=== PATIENT | male | born 1970 | race Caucasian/White ===

== ENCOUNTER 2022-10-22 22:19 | Inpatient (IN) | payer MEDICAID, SELFPAY ==
[2022-10-22 22:26] VITALS: BP 123/71; PULSE 78; RESP 18; TEMP 36.6; O2SAT 95; BMI 31.2
[2022-10-22 22:43] LABS: Basophils # 0.1 10^3/uL (0.0-0.1); Eosinophils # 0.3 10^3/uL (0.0-0.8); Eosinophils % 4.9 %; Hematocrit 41.7 % (42.0-52.0); Hemoglobin 13.4 g/dL (11.7-16.6); Lymphocytes # 1.7 10^3/uL (0.8-4.8); Mean Corpuscular HGB Conc 32.1 g/dL (30.0-36.0); Mean Corpuscular Hemoglobin 28.7 pg (28.0-34.0); Mean Corpuscular Volume 89.3 fl (80-94); Mean Platelet Volume 8.3 fL (7.4-10.4); Monocytes # 0.6 10^3/uL (0.2-0.9); Monocytes % 9.9 %; Neutrophils # 3.43 10^3/uL (1.8-7.7); Neutrophils % 55.9 %; Nucleated Red Blood Cells % 0 %; Platelet Count 248 10^3/cmm (130-400); Red Blood Count 4.67 10^6/uL (4.1-5.3); White Blood Count 6.1 10^3/uL (4.0-10.0)
--- NOTE | 2022-10-22 22:54 | W.ED.PSYCHS ---
HPI - Psych General: Chief Complaint: Psychiatric Symptoms Stated Complaint: si Time Seen by Provider: 10/22/22 22:21 Source: patient Mode of arrival: ambulatory Limitations: no limitations History of Present Illness: 52-year-old male states he has a history of depression he states that he has been under a lot of stress lately has been fighting with his significant other states he has been out of his psych meds for quite some time its been having increased suicidal thoughts and depression he states that he wants to be admitted to the psych parker to get started on his meds and to get some help. Associated symptoms: Reports depression and suicidal ideation Review of Systems Const: Denies: fever(s), chills, body aches or change in appetite ENMT: Denies: throat pain or dental pain Card: Denies: chest pain Resp: Denies: dyspnea GI: Denies: abdominal pain, nausea or vomiting Musc: Denies: neck pain or back pain Skin/Breast: Denies: rash Neuro: Denies: headache(s) Psych: Reports: depression and suicidal ideation [facility] PFSH: Medical History Parotid gland pain Physical Exam Const: COMMON NORMALS: no acute distress, patient oriented x3 and healthy appearing HENMT: COMMON NORMALS: normocephalic and atraumatic HEAD & SCALP: normocephalic and atraumatic Neck/C-Spine: COMMON NORMALS: full ROM and supple Chest: COMMONS NORMALS: normal inspection of the chest Resp: COMMON NORMALS: normal respiratory effort Cardio: COMMON NORMALS: regular rate and No murmurs present (Cardio) RATE: regular rate GI: INSPECTION: Yes normal to inspection Extremity: COMMON NORMALS: normal to inspection Neuro: COMMON NORMALS: patient oriented x3, moves all extremities and no focal motor deficits Psych: COMMON NORMALS: mental status grossly normal, Normal thought process present and cooperative THOUGHT PROCESS: Normal thought process present Skin: COMMON NORMALS: no rashes or lesions noted and no wounds GENERAL SKIN EXAM: no rashes or lesions noted Course Vital Signs: Vital signs: Vital Signs Temperature 98 F 10/22/22 22:26 Pulse Rate 78 10/22/22 22:26 Respiratory Rate 18 10/22/22 22:26 Blood Pressure 123/71 10/22/22 22:26 Pulse Oximetry 95 10/22/22 22:26 MDM - Psych Medical Decision Making Patient presents for suicidal ideations he is voluntary has been calm and cooperative he has not been on his psych meds for quite some time and is under a lot of stress spoke to psychiatrist patient is medically cleared will admit. Lab Data 10/22/22 22:31 10/22/22 22: Laboratory Results WBC 6.1 10^3/uL (4.0-10.0) 10/22/22 22: RBC 4.67 10^6/uL (4.1-5.3) 10/22/22 22: Hgb 13.4 g/dL (11.7-16.6) 10/22/22: Hct 41.7 % (42.0-52.0) L 10/22/22: MCV 89.3 fl (80-94) 10/22/22: MCH 28.7 pg (28.0-34.0) 10/22/22: MCHC 32.1 g/dL (30.0-36.0) 10/22/22 22: RDW 14.0 % (12.1-15.1) 10/22/22: Plt Count 248 10^3/cmm (130-400) 10/22/22: MPV 8.3 fL (7.4-10.4) 10/22/22 22: Neut % (Auto) 55.9 % 10/22/22 22: Lymph % (Auto) 28.0 % 10/22/22: Nobles % (Auto) 9.9 % 10/22/22 22: Eos % (Auto) 4.9 % 10/22/22 22: Baso % (Auto) 1.0 % 10/22/22: Neut # (Auto) 3.43 10^3/uL (1.8-7.7) 10/22/22: Lymph # (Auto) 1.7 10^3/uL (0.8-4.8) 10/22/22 22: Nobles # (Auto) 0.6 10^3/uL (0.2-0.9) 10/22/22 22: Eos # (Auto) 0.3 10^3/uL (0.0-0.8) 10/22/22 22:31 Baso # (Auto) 0.1 10^3/uL (0.0-0.1) 10/22/22 22:31 Nucleated RBC % (auto) 0 % 10/22/22 22:31 Nucleated RBCs # 0.0 /100WBC 10/22/22 22:31 Discharge Plan Discharge Patient Disposition: Admitted As Inpatient Clinical Impression: Suicidal ideation Condition: Stable Prescriptions: No Action amoxicillin 875 mg tablet 875 mg PO BID Qty: 14 0RF Coding Level of Care Code ED Answering Service Telephone Operator for Anali Vera
[2022-10-22 23:05] LABS: Alanine Aminotransferase 25 U/L (0-41); Albumin Level 3.9 g/dL (3.5-5.2); Alkaline Phosphatase 55 U/L (40-130); Anion Gap 13.1 (5-19); Aspartate Amino Transferase 16 U/L (0-40); Blood Urea Nitrogen 13 mg/dL (6-20); Calcium 8.8 mg/dL (8.5-10.5); Carbon Dioxide 29 mmol/L (22-29); Chloride 102 mmol/L (98-107); Globulin 2.3 g/dL (1.3-4.6); Glomerular Filtration Rate 100.7 mL/min (90-130); Glucose 101 mg/dL (65-115); Osmolality Calculated 290 mOsm/kg (285-295); Potassium 4.1 mmol/L (3.5-5.1); Sodium 140 mmol/L (136-145); Total Bilirubin 0.2 mg/dL (0.15-1.2); Total Protein 6.2 g/dL (6.6-8.7)
[2022-10-22 23:06] LABS: Acetaminophen < 5.0 ug/mL (10-30); Alcohol Level < 10 mg/dL (0-10); Salicylate < 0.3 mg/dL (3-10)
[2022-10-22 23:10] VITALS: BP 119/81; PULSE 67; RESP 18; TEMP 36.6; O2SAT 96
[2022-10-22 23:19] VITALS: BMI 32.6
[2022-10-23 00:05] LABS: THC Screen Urine Positive (Negative)
[2022-10-23 00:06] LABS: Amphetamines Screen Urine Negative (Negative); Barbiturates Screen Urine Negative (Negative); Benzodiazepines Screen Urine Negative (Negative); Cocaine Screen Urine Negative (Negative); Opiate Screen Urine Negative (Negative); PCP Screen Urine Negative (Negative)
[2022-10-23 06:00] VITALS: BP 136/78; PULSE 86; RESP 18; TEMP 36.6; O2SAT 98
[2022-10-23 14:00] VITALS: BP 123/79; PULSE 65; RESP 16; TEMP 36.8; O2SAT 96
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
[2022-10-23] MEDS: ibuprofen 600 mg Tablet PO (15:22)
--- NOTE | 2022-10-23 15:27 | PC.NURSE ---
Patient has slept and been withdrawn to room all day today. Patient denies avh currently and previously. He endorses current si with no plan. Patient states he is depressed and anxious due to he and his fiance arguing. He says he attempted suicide years ago by way of cutting. Patient says he has been hospitalized in a psych facility before in [place], [place] and also went to treatment there. He was unable to tell me the exact year, but says it was within the last 5 years. He denies hi. Cooperative and calm throughout assessment.
[2022-10-23 19:41] VITALS: BP 126/80; PULSE 75; RESP 17; TEMP 37; O2SAT 95
[2022-10-24 06:00] VITALS: BP 123/69; PULSE 60; RESP 16; O2SAT 96
[2022-10-24 14:00] VITALS: BP 109/72; PULSE 66; RESP 16; TEMP 36.6; O2SAT 97
--- NOTE | 2022-10-24 14:58 | W.PM.NPUPNS ---
Subjective NPU Subjective: Is a 52-year-old white male with a reported history of bipolar disorder and a past history of suicide attempts and multiple hospitalizations who was admitted with depressed mood and suicidal ideation with a plan to cut himself. The patient remained in his bedroom with minimal interaction with his peers. He had reported a 2-year history of noncompliance with his medication. Previous records had intimated that the patient has a history of substance abuse as well. Previous medications prescribed included doxepin, Effexor, Abilify, gabapentin,Suboxone, and and Klonopin. Patient had continue to endorse depressed mood and reported having poor frustration tolerance. He had acknowledged a past history of susan but stated that he had spent considerable more time feeling depressed as he described feeling depressed for months. He had reported previous failures on Seroquel Exar and Abilify. He continued to feel hopeless and stated that he was still having suicidal thoughts but no urges to cut himself. Mental Status Exam MSE Comments: Patient is a surly white male who appeared older than his stated age with fair eye contact and normal gait. There is no evidence of any abnormal involuntary motor movements tics or tremors appreciated. There was evidence of moderate psychomotor retardation. His speech was normal in regards to rate rhythm and prosody. His thought process was linear and logical. His thought content showed evidence of suicidal ideation with no thoughts of self injury reported. He minimized any homicidal ideation. He did not appear to be responding to internal stimuli. There is no clear evidence of delusional thinking. He was alert and oriented to person place and time. His recent and remote memory appeared grossly intact. His impulse control appeared limited. His insight is poor. His judgment is poor. Vitals/I&O/Wt Last Vital Signs Temp 97.9 F 10/24/22 14:00 Pulse 66 10/24/22 14:00 Resp 16 10/24/22 14:00 BP 109/72 10/24/22 14:00 Pulse Ox 97 10/24/22 14:00 O2 Del Method Room Air 10/24/22 14:00 Weight last 48 hrs Weight 103.147 kg Weight 98.883 kg Data NPU 10/22/22 22:31 10/22/22 22:31 A&P Assessment and plan (1) Suicidal ideation: (2) Depression, unspecified: (3) Methamphetamine abuse: (4) Bipolar affective, depress, unspec: Plan Is a 52-year-old male with a history of multiple inpatient hospitalizations reporting suicidal ideation and depression with reports of a past history of polysubstance abuse. He would likely benefit from continued hospital stay with a restarted on his medications. ?1.? ? Engage? patient in individual ,milieu, and group therapy ?2. ? Will start lamotrigine 25mg bid, and invega 3mg at night to target agitation and irritability. 3. ? TO-15 minute checks on the unit. 4.? Recommend sober living treatment at the highest level of care to which the patient is willing to commit. ?5. ? [facility] protocol,-no withdrawal symptoms reported. Involuntary Hold Information 96 Hour Hold: 96 Hour Involuntary Admission: No Attestations NPU Medical Necessity Statement*: Inpatient hospitalization is medically necessary and deemed to be the clinically appropriate intervention at this time.? We will monitor/initiate medications and make changes as indicated.? His likely length of stay 4-6 days. Coding Level of Care Code Acute Code for [facility] Fwd Diagnoses Suicidal ideation R45.851 Depression, unspecified F32.A Methamphetamine abuse F15.10 Bipolar affective, depress, unspec F31.30
[2022-10-24] MEDS: lamoTRIgine 25 mg Tablet PO (17:30)
[2022-10-24 19:48] VITALS: BP 110/71; PULSE 64; RESP 17; TEMP 37.1; O2SAT 96
[2022-10-24] MEDS: paliperidone ER 3 mg Tablet PO (19:58)
[2022-10-24] MEDS: ibuprofen 600 mg Tablet PO (20:36)
[2022-10-25 06:00] VITALS: BP 113/74; PULSE 58; RESP 16; O2SAT 94
[2022-10-25] MEDS: lamoTRIgine 25 mg Tablet PO (08:50)
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
[2022-10-25 13:59] VITALS: BP 135/85; PULSE 89; RESP 16; TEMP 36.9; O2SAT 96
[2022-10-25 14:01] VITALS: BP 135/85; PULSE 89; RESP 16; TEMP 36.9; O2SAT 96
== END 2022-10-25 14:40 | disposition home or self-care (01) | DRG 885 ==
LOC: ER 22:56 → NP 10-23 01:27
PROVIDERS: Admitting Provider Psychiatry & Neurology Psychiatry; Emergency Provider Emergency Medicine; Visit Provider Psychiatry & Neurology Psychiatry
DX: F31.9 Bipolar disorder, unspecified (principal); F15.10 Other stimulant abuse, uncomplicated; Z63.0 Problems in relationship with spouse or partner; Z91.128 Patient's intentional underdosing of medication regimen for other reason
CPT/HCPCS: 36415; 80053; 80306; 80307; 85025; 97165; 99238; 99285

== ENCOUNTER → 2022-12-08 09:01 | Outpatient (BNVA) | payer MEDICAID, SELFPAY | PROVIDERS: Visit Provider Nurse Practitioner Family | DX: J06.9 Acute upper respiratory infection, unspecified (principal); R05.9 Cough, unspecified; U07.1 COVID-19 | CPT/HCPCS: 87426 ==

== ENCOUNTER → 2023-05-10 09:23 | Outpatient (BNVA) | payer SELFPAY | PROVIDERS: Visit Provider Nurse Practitioner Family | DX: R05.9 Cough, unspecified (principal) | CPT/HCPCS: 87400 ==